=== PATIENT | female | born 1990 | race Caucasian/White ===

== ENCOUNTER 2018-11-11 09:27 | Inpatient (IN) ==
[2018-11-11] MEDS ORDERED: OXYTOCIN 10 UNITS/ML SYRG IM ONE (10:00)
--- NOTE | 2018-11-11 13:13 | HP ---
Chief Complaint - Chief Complaint Date of Service: 11/11/18 Time of Service: 13:11 Chief Complaint: Labor and ruptured membranes History of Present Illness: The patient presented to labor and delivery complaining of contractions and rupture of membranes and then delivered. Medical History (Updated 04/14/18 @ 15:01 by Yefri Cerna DO) Cervical high risk human papillomavirus (HPV) DNA test positive (Acute) Short interval between pregnancies affecting , antepartum (Acute) History of gestational hypertension (Chronic) Influenza vaccination declined by patient (Acute) Onset Date: 04/14/18 Abnormal Pap smear of cervix Onset Date: ~09/2015 HR HPV- no tx, no colpo History of gestational hypertension Onset Date: 2015 Surgical History: Surgical History (Updated 04/14/18 @ 13:26 by Karin Edwards RN) History of repair of ACL Onset Date: 05/2009 right [place] teeth extracted Onset Date: 2010 Family History: Family History (Updated 04/14/18 @ 13:28 by Karin Edwards RN) Mother Hypertension Hyperlipemia Father Hyperlipemia Grandmother Diabetes Type 2. Maternal Grandfather , Maternal Pancreatic cancer Grandfather , Paternal Parkinsons disease Social History: Preferred Language Maori Smoking Status Never smoker (Last Updated 11/09/18 @ 10:26 by Yefri Cerna DO) No Social History Section defined Review Of Systems (GEN) - Review of Systems Generalized/Overall Review: Present: No Symptoms Reported Misc: All systems neg except as marked Allergies/Adverse Reactions: Allergies Allergy/AdvReac Type Severity Reaction Status Date / Time No Known Allergies Allergy Verified 11/03/18 08:55 Home Medications: HOME MEDICATIONS vitamin,calcium,bgtpzjsc-uzpy-khpem acid tablet 1 tab PO DAILY 04/14/18 [Last Taken Unknown] breast pump See Dose Instructions .ROUTE .MEDSUPPLY #1 ea 10/26/18 [Last Taken Unknown] Exam - Exam Vital Signs: Vital Signs - Last Taken Pulse 93 11/11/18 12:44 Resp 18 11/11/18 12:44 BP 129/70 11/11/18 12:44 Pulse Ox 99 11/11/18 11:58 Constitutional: Present: Alert, Oriented x3, Cooperative, No distress Respiratory: Present: lungs clear, normal breath sounds Cardiovascular/Chest: Present: regular rate, rhythm, no murmur Abdomen: Present: soft, nontender, nondistended Extremity: Present: non-tender, no calf tenderness Skin Exam: Present: normal color, warm/dry, no cyanosis Appearance: Present: appropriate appearance Eye contact: Present: cooperative Thoughts: Present: normal thought pattern Assessment/Plan - Narrative Narrative: 28 year old s/p precipitous delivery by RN Doing well Pitocin IM for control of bleeding
--- NOTE | 2018-11-11 13:21 | OR ---
Operative Report - Dictated Report Narrative: Date of delivery: 11/11/2018 Time of delivery: 944 Gender: male weight: 4104 grams APGARS: 8/9 Procedure: Description of the procedure: The patient is a 28 year old at 38w 6d who was in labor and then had rupture of membranes while driving to the hospital. She arrived and had a precipitous delivery by RN. The placenta was delivered by expression and appeared intact. Meconium was noted. Placental cultures were taken by RN due to foul smell noted by RN. There were no lacerations. Lacerations: none Complications: none Specimens: placenta History for MU Definition: * The number of deliveries resulting in a live the patient experienced prior to current hospitalization * The previous delivery of live twins or any live multiple gestation is considered one live event. *If primagravida or nulliparous is documented select zero for the number of previous live births. Live Events: 2
[2018-11-11] MEDS ORDERED: SENNOSIDES 8.6 MG TABLET PO PRN (14:13)
[2018-11-11] MEDS ORDERED: GLYCERIN/WITCH HAZEL LEAF 40 APPL BOX TP PRN (14:13)
[2018-11-11] MEDS ORDERED: HYDROcodone/ACETAMINOPHEN 1 EACH TABLET PO PRN ×2 (14:13)
[2018-11-11] MEDS ORDERED: HYDROCORTISONE 30 APPL TUBE TP PRN (14:13)
[2018-11-11] MEDS ORDERED: BISACODYL 10 MG SUPP.RECT RC PRN (14:13)
[2018-11-11] MEDS ORDERED: BENZOCAINE/MENTHOL 81 SPRAY CAN TP PRN (14:13)
[2018-11-11] MEDS: DOCUSATE SODIUM 100 MG CAPSULE PO SCH (21:57)
[2018-11-11] MEDS: IBUPROFEN 800 MG TABLET PO PRN (21:59)
[2018-11-12] MEDS: IBUPROFEN 800 MG TABLET PO PRN ×3 (05:06→19:59)
--- NOTE | 2018-11-12 11:34 | PN ---
Subjective - Date and Time Seen Date: 11/12/18 Time: 11:33 Objective - Vitals Vitals: Last Vital Signs Temp 36.3 C 11/12/18 06:50 Pulse 77 11/12/18 06:50 Resp 20 11/12/18 06:50 BP 135/81 11/12/18 06:50 Pulse Ox 98 11/12/18 06:50 Patient denies complaints. Lochia wnl Abdomen - soft, nontender Uterus - firm, at umbilicus - 1 No calf tenderness Impression: day #1 - s/p spontaneous vaginal delivery/precipitous delivery. Plan: Continue routine care
[2018-11-12] MEDS: DOCUSATE SODIUM 100 MG CAPSULE PO SCH ×2 (12:06→21:16)
[2018-11-13] MEDS: IBUPROFEN 800 MG TABLET PO PRN ×2 (01:43→10:20)
[2018-11-13 07:35] VITALS: BP 115/68
--- NOTE | 2018-11-13 11:51 | PN ---
Subjective - Date and Time Seen Date: 11/13/18 Time: 11:50 Objective - Vitals Vitals: Last Vital Signs Temp 37.1 C 11/13/18 07:32 Pulse 83 11/13/18 07:32 Resp 18 11/13/18 07:32 BP 115/68 11/13/18 07:32 Pulse Ox 98 11/13/18 07:32 Patient denies complaints. Breast-feeding well Lochia wnl Abdomen - soft, nontender Uterus - firm, at umbilicus - 2 No calf tenderness Impression: day #2 - s/p spontaneous vaginal delivery. Plan: Routine discharge instructions
== END 2018-11-13 13:25 | disposition home or self-care (01) | DRG 805 ==
LOC: OB 09:27
PROVIDERS: ADMIT Obstetrics & Gynecology; ATTEND Obstetrics & Gynecology
CPT/HCPCS: 59025; 87070; 87075; 87077; 87186; 88307

== ENCOUNTER 2020-05-07 23:44 | Inpatient (IN) ==
[2020-05-08] MEDS ORDERED: DEXTROSE 5%-LACTATED RINGERS 1,000 ML IV PRN (00:13)
[2020-05-08] MEDS ORDERED: ONDANSETRON 4 MG TAB.RAPDIS PO PRN (00:13)
[2020-05-08] MEDS ORDERED: MISOPROSTOL 100 MCG TABLET VG PRN (00:13)
[2020-05-08] MEDS ORDERED: RINGER'S SOLUTION,LACTATED 1,000 ML IV ONE (00:13)
[2020-05-08] MEDS ORDERED: OXYTOCIN/0.9 % SODIUM CHLORIDE 30 UNITS/500 ML BAG IV ONE ×2 (00:13→12:34)
--- NOTE | 2020-05-08 09:17 | HP ---
Chief Complaint - Chief Complaint Date of Service: 05/08/20 Time of Service: 08:40 Chief Complaint: elective induction of labor History of Present Illness: 29 yo at 39 1/7 weeks presents to L&D for elective induction of labor. This complicated by 1st trimester subchorionic hemorrhage and h/o GHTN. Rh postive Rubella immune GBS negative Medical History (Last Reviewed 05/08/20 @ 09:14 by Yefri Cerna DO) History of gestational hypertension (Chronic) ASCUS with positive high risk HPV cervical (Acute) Influenza vaccination given 03/23/20 Abnormal Pap smear of cervix Onset Date: ~09/2015 HR HPV- no tx, no colpo Chorioamnionitis Onset Date: 11/11/18 Early, acute. Acute infarction of placenta involving <5% of the placental volume. History of gestational hypertension Onset Date: 2015 History of gestational hypertension (Inactive) Influenza vaccination declined by patient (Inactive) Onset Date: 04/14/18 Short interval between pregnancies affecting , antepartum (Inactive) Surgical History: Surgical History (Last Reviewed 05/08/20 @ 09:14 by Yefri Cerna DO) History of repair of ACL Onset Date: 05/2009 right [place] teeth extracted Onset Date: 2010 Family History: Family History (Last Reviewed 05/08/20 @ 09:14 by Yefri Cerna DO) Mother Hypertension Hyperlipemia Father Hyperlipemia Grandmother Diabetes Type 2. Maternal Grandfather , Maternal Pancreatic cancer Grandfather , Paternal Parkinsons disease Social History: (Last Reviewed 05/08/20 @ 09:14 by Yefri Cerna DO) Social History: adopted: No Marital status: household members: spouse number of children: 2 current occupational status: employed current occupation: Accounting Highest level of school completed/degree received: Master's degree Sexually Active: Yes Service: No Tobacco: Smoking Status: Never smoker Alcohol: alcohol intake: current alcohol intake frequency: holiday/special occasion Substance Use: substance use type: does not use Dietary Habits: caffeine: No daily servings of milk/calcium: 2-4 Exercise: Physical activity type: walking frequency: daily Anu/Mosque: special anu needs: No agree to transfusion: Yes Personal Safety: do you feel safe at home: Yes victim of physical abuse: No victim of emotional abuse: No victim of sexual abuse: No Review Of Systems (GEN) - Review of Systems Generalized/Overall Review: Present: No Symptoms Reported EENTM: Present: No Symptoms Reported Respiratory: Present: No Symptoms Reported Cardiac: Present: No Symptoms Reported Abdominal: Present: No Symptoms Reported Genitourinary: Present: No Symptoms Reported Musculoskeletal: Present: No Symptoms Reported Neurological: Present: No Symptoms Reported Skin: Present: No Symptoms Reported Endocrine: Present: No Symptoms Reported Allergies/Adverse Reactions: Allergies Allergy/AdvReac Type Severity Reaction Status Date / Time No Known Allergies Allergy Verified 05/08/20 00:19 Home Medications: HOME MEDICATIONS prenat.vits,adam,wby-fqbe-sijxr 1 tab PO DAILY 04/14/18 [Last Taken 05/07/20 20:00] Exam - Exam Vital Signs: Vital Signs - Last Taken Temp 36.8 C 05/08/20 00:14 Pulse 80 05/08/20 00:14 Resp 16 05/08/20 00:14 BP 135/89 05/08/20 00:14 Pulse Ox 97 05/08/20 00:14 Constitutional: Present: Alert, Oriented x3, Cooperative, No distress ENT Exam: Present: hearing grossly normal Neck: Present: non-tender, supple, trachea midline. Absent: thyromegaly Back Exam: Present: no CVA tenderness Breasts: Present: Exam deferred Respiratory: Present: lungs clear, no respiratory distress Cardiovascular/Chest: Present: normal peripheral pulses, regular rate, rhythm, no edema Abdomen: Present: soft, nontender, no rebound tenderness, other - gravid /Rectal: Present: Other - Cervix - 1-2/50/-2 Extremity: Present: non-tender, no pedal edema, no calf tenderness Skin Exam: Present: normal color, warm/dry, no cyanosis Lymphatic: Present: no adenopathy Neurologic: Present: alert, normal mood/affect, oriented x 3 Appearance: Present: appropriate appearance, appropriate insight Eye contact: Present: cooperative, good eye contact Thoughts: Present: normal thought pattern, normal mood /affect Assessment/Plan - Assessment/Plan (1) Encounter for induction of labor Assessment: Admit for cytotec induction of labor. Epidural and Pitocin PRN. Problem: Acute (2) History of gestational hypertension Problem: Chronic
--- NOTE | 2020-05-08 09:18 | PN ---
Progess Note - Interim Date: 05/08/20 Time: 08:50 Narrative: 05/08/20 09:18 Patient rating her contractions as mild to moderate Vital signs stable. Pitocin at 2 mu/min. FHT: 130 baseline, reassuring contractions q 2-3 min Cervix: 5/50/-2 Impression: Intrauterine at 39 1/7 weeks induction of labor, progressing well Plan: Continue present plan
[2020-05-08] MEDS ORDERED: BENZOCAINE/MENTHOL 81 SPRAY CAN TP PRN (12:34)
[2020-05-08] MEDS ORDERED: HYDROCORTISONE 30 APPL TUBE TP PRN (12:34)
[2020-05-08] MEDS ORDERED: BISACODYL 10 MG SUPP.RECT RC PRN (12:34)
[2020-05-08] MEDS ORDERED: oxyCODONE HCL/ACETAMINOPHEN 1 TAB TABLET PO PRN (12:34)
[2020-05-08] MEDS ORDERED: GLYCERIN/WITCH HAZEL LEAF 40 APPL BOX TP PRN (12:34)
[2020-05-08] MEDS ORDERED: SENNOSIDES 8.6 MG TABLET PO PRN (12:34)
--- NOTE | 2020-05-08 12:39 | OR ---
Operative Report - Dictated Report Narrative: Spontaneous vaginal delivery of vigorously crying viable male at 1208 on 05/08/2020 with Apgars 8 and 9, weighing 4016 g in ZANDRA position with tight nuchal cord x1. Cord clamping delayed approximately 1 minute Placenta delivered complete, intact, with three vessel cord Estimated blood loss: Less than 50 ml Anesthesia: None Lacerations: None History for MU History for MU Definition: * The number of deliveries resulting in a live the patient experienced prior to current hospitalization * The previous delivery of live twins or any live multiple gestation is considered one live event. *If primagravida or nulliparous is documented select zero for the number of previous live births. Live Events: Live Events: 3
[2020-05-08] MEDS: IBUPROFEN 800 MG TABLET PO PRN ×2 (13:41→21:56)
[2020-05-08] MEDS: DOCUSATE SODIUM 100 MG CAPSULE PO SCH (21:56)
[2020-05-09] MEDS: PRENATAL VITS96/IRON FUM/FOLIC 1 TAB TABLET PO SCH (10:10)
[2020-05-09] MEDS: DOCUSATE SODIUM 100 MG CAPSULE PO SCH ×2 (10:11→21:35)
[2020-05-09] MEDS: IBUPROFEN 800 MG TABLET PO PRN ×2 (10:11→21:35)
--- NOTE | 2020-05-09 17:40 | PN ---
Subjective - Date and Time Seen Date: 05/09/20 Time: 17:40 Objective - Vitals Vitals: Last Vital Signs Temp 36.5 C 05/09/20 09:06 Pulse 84 05/09/20 15:33 Resp 18 05/09/20 15:33 BP 128/78 05/09/20 15:33 Pulse Ox 99 05/09/20 15:33 Patient denies complaints. Breast-feeding. Lochia wnl abdomen - soft, nontender Uterus -firm, at umbilicus - 1 No calf tenderness Impression: day #1 - s/p spontaneous vaginal delivery. Plan: Continue routine care Assessment/Plan - Problems/Diagnosis (1) Encounter for induction of labor Problem: Acute (2) History of gestational hypertension Problem: Chronic
--- NOTE | 2020-05-10 09:07 | PN ---
Subjective - Date and Time Seen Date: 05/10/20 Time: 09:07 Objective - Vitals Vitals: Last Vital Signs Temp 36.4 C 05/10/20 07:45 Pulse 90 05/10/20 07:45 Resp 16 05/10/20 07:45 BP 124/64 05/10/20 07:45 Pulse Ox 98 05/09/20 18:55 Patient denies complaints. Breast-feeding. Lochia wnl abdomen - soft, nontender Uterus -firm, at umbilicus - 2 No calf tenderness Impression: day #2 - s/p spontaneous vaginal delivery. Plan: Routine discharge instructions Assessment/Plan - Problems/Diagnosis (1) Encounter for induction of labor Problem: Acute (2) History of gestational hypertension Problem: Chronic
[2020-05-10] MEDS: DOCUSATE SODIUM 100 MG CAPSULE PO SCH (09:44)
[2020-05-10] MEDS: PRENATAL VITS96/IRON FUM/FOLIC 1 TAB TABLET PO SCH (09:44)
[2020-05-10 12:16] VITALS: BP 122/74
== END 2020-05-10 14:24 | disposition home or self-care (01) | DRG 807 ==
LOC: OB 23:44
PROVIDERS: ADMIT Obstetrics & Gynecology; ATTEND Obstetrics & Gynecology